=== PATIENT | male | born 1940 | race Caucasian/White ===

== ENCOUNTER 2022-10-27 08:16 | Outpatient (CLI) | payer MEDICARE, BC, SELFPAY ==
--- NOTE | 2022-10-27 07:52 | W.ANESCHARGE ---
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
--- NOTE | 2022-10-27 10:21 | W.ANESCHARGE ---
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
== END 2022-10-27 08:17 | disposition home or self-care (01) ==
LOC: OP CLINIC 08:20
PROVIDERS: PCP Family Medicine; Visit Provider Internal Medicine Gastroenterology
DX: Z12.11 Encounter for screening for malignant neoplasm of colon (principal); K63.5 Polyp of colon; Z86.010 Personal history of colon polyps
CPT/HCPCS: 45380; 45385; 811; 88305; 99100; J2704